=== PATIENT | female | born 1955 | race Caucasian/White ===

== ENCOUNTER 2018-07-24 18:02 | Inpatient (IN) ==
[2018-07-24 21:23] LABS: Basophils % 0.4 %; Eosinophils # 0.3 K/mcL (0.0-0.6); Eosinophils % 4.7 %; Hematocrit 44.6 % (35.3-44.9); Hemoglobin 13.8 g/dL (11.5-15.4); Immature Granulocytes % 0.3 % (0-4); Lymphocytes # 1.3 K/mcL (0.6-4.6); Lymphocytes % 17.9 %; Mean Corpuscular HGB Conc 30.9 g/dL (31.6-35.5); Mean Corpuscular Hemoglobin 27.9 pg (28.0-33.3); Mean Corpuscular Volume 90.1 fL (83.0-100.0); Mean Platelet Volume 10.4 fL (9.4-12.4); Monocytes # 0.5 K/mcL (0.0-1.3); Monocytes % 6.5 %; Neutrophils # 5.1 K/mcL (1.6-8.9); Platelet Count 180 K/mcL (140-400); Red Blood Count 4.95 M/mcL (3.82-4.97); Segmented Neutrophils % 70.2 %; White Blood Count 7.3 K/mcL (4.3-11.1)
[2018-07-24 21:37] LABS: BUN/Creatinine Ratio 19 (6-26); Blood Urea Nitrogen 12 mg/dL (8-23); Calcium 8.9 mg/dL (8.6-10.3); Carbon Dioxide 33 mEq/L (23-29); Chloride 103 mEq/L (98-107); Glucose 95 mg/dL (70-105); Osmolality,Calculated 292 (280-300); Potassium 4.5 mEq/L (3.5-5.1); Sodium 141 mEq/L (136-145); eGFR For African Americans > 60 (> 60); eGFR For Non-African Americans > 60 (> 60)
[2018-07-24 21:38] LABS: Troponin I < 0.03 ng/mL (< 0.04)
--- NOTE | 2018-07-25 01:17 | Emergency Department Note ---
Disposition Clinical Impression: Acute exacerbation of chronic obstructive airways disease Disposition: Admitted As Inpatient Condition: Fair Time of Disposition: 03:45 General Adult HPI - General Chief complaint: ED Shortness of Breath/Dyspnea Stated complaint: MINNIE Time Seen by Provider: 07/24/18 21:10 Source: patient Limitations: no limitations Nursing Notes Reviewed: Yes Vital Signs Reviewed: Yes - History of Present Illness HPI Narrative: 63-year-old female with history of COPD who presents the emergency department with complaints of shortness of breath. This is been ongoing for approximately one week and progressively worsening. She states she has been using her albuterol inhaler at home without significant improvement. Today she was seen by her primary care physician who told her she had decreased lung sounds and should come to the emergency department for reevaluation. The patient has inte rmittent cough with production of white sputum but denies any fever, chills, chest pain, nausea, vomiting, abdominal pain, diarrhea. She has no pain on deep inhalation. She has no increase in swelling in her legs. Pain Scale: 0 - Related Data Home Medications Medication Instructions Recorded Confirmed Aspirin [Adult Aspirin] 81 mg PO DAILY 07/25/18 07/25/18 Levothyroxine [Synthroid] 25 mcg PO DAILY 07/25/18 07/25/18 Omeprazole [PriLOSEC] 20 mg PO DAILY 07/25/18 07/25/18 Allergies Allergy/AdvReac Type Severity Reaction Status Date / Time codeine Allergy Hives Verified 12/08/15 15:20 Iodinated Contrast- Oral and Allergy Difficulty Verified 12/08/15 15:20 IV Dye Breathing [Iodinated Contrast Media - IV Dye] morphine Allergy Rash Verified 07/24/18 18:59 Penicillins Allergy See Verified 07/25/18 04:41 Comments Review of Systems: ROS per history of present illness, all other systems reviewed and negative or normal. All systems ED: reviewed and negative except as stated. Review of Systems: As Per HPI Past Medical History - Past Medical History Attestation: Yes The following information was validated with the patient. Medical history: Reports: DVT, thyroid disease - Social History Smoking Status: Former smoker Smokeless Tobacco Status: No Alcohol use: Reports: none Drug use: Reports: none Physical Exam General: Conversant. No apparent distress. Follow commands. Appears stated age. Neck: No JVD. Trachea midline. Neck supple. Eyes: PERRL. No scleral icterus. HENT: Normocephalic and atraumatic. Moist mucus membranes. Cardiovascular: Regular rate and rhythm. Normal S1 and S2. No murmurs appreci ated. Normal capillary refill. Extremities well perfused with 2+ distal pulses bilaterally. No edema. Pulmonary: Coarse breath sounds with and expiratory wheezing in all lung quinonez, worse in the bases. The patient is on 2 L nasal cannula and does not on baseline oxygen at home. Abdomen: Soft, nondistended, and tontender. No bruits or masses. No guarding. Neuro: Alert and oriented x3. No slurred speech. No focal deficits noted. Skin: No rashes noted on visualized skin. Musculoskeletal: No bony abnormalities visualized. Moves all extremities. Psych: Normal mood. Pleasant. Makes appropriate eye contact. - General Limitations: no limitations General appearance: alert, in no apparent distress Course - Reevaluation(s) Reevaluation #1: On reevaluation following duonebs the patient has significant improvement in air movement and is not wheezing but she does continue to have decreased air movement throughout and requiring 2L nasal cannula to maintain adequate oxygenation. Time: 03:19 Vital Signs Temperature 97.8 F 07/24/18 18:57 Pulse Rate 88 07/24/18 18:57 Respiratory Rate 22 07/24/18 18:57 Blood Pressure 151/103 07/24/18 18:57 O2 Sat by Pulse Oximetry 95 07/24/18 18:57 Temperature 98.1 F 07/24/18 21:51 Pulse Rate 89 07/25/18 04:43 Respiratory Rate 18 07/25/18 04:43 Blood Pressure 144/83 07/25/18 04:43 O2 Sat by Pulse Oximetry 94 07/25/18 04:43 Oxygen Delivery Oxygen Delivery Nasal Cannula Medical Decision Making - [facility] Narrative Medical decision making narrative: 63-year-old female who presents the emergency department with complaints of shortness of breath over the last week. On arrival patient is hypoxic down to the 80s and was therefore placed on nasal cannula. The patient does have diffuse wheezing and increased work of breathing on my examination. The patient was given DuoNeb 3 with improvement in her aeration, no more wheezing but she does have continued decreased breath sounds. She was also given 125 mg dexamethasone. Laboratory evaluation including CBC, BMP, EKG and chest x-ray shows no significant abdomen bowel days. The patient does not have focal consolidation on chest x-ray. EKG appears approximately the patient's baseline. There is no significant leukocytosis or electrolyte abnormality. The patient does continue to have increased work of breathing therefore given albuterol treatments. Given her oxygen requirement there is no above her baseline of will admit the patient for COPD exacerbation. Discussed case with on-call hospitalist Dr. Mir who agrees with plan for admission and accepts the patient to the inpatient service. Patient agrees with and understands course of treatment plan including plan for admission. All questions answered. - Medical Records Medical records reviewed: Yes I reviewed the patient's medical records. - Lab Data Lab results reviewed: Yes I reviewed the patient's lab results. Result diagrams: 07/24/18 20:45 07/24/18 20:44 Lab Results 07/24/18 07/24/18 07/24/18 Range/Units 20:44 20:45 20:45 WBC 7.3 (4.3-11.1) K/mcL RBC 4.95 (3.82-4.97) M/mcL Hgb 13.8 (11.5-15.4) g/dL Hct 44.6 (35.3-44.9) % MCV 90.1 (83.0-100.0) fL MCH 27.9 L (28.0-33.3) pg MCHC 30.9 L (31.6-35.5) g/dL RDW 15.0 H (11.5-14.5) % Plt Count 180 (140-400) K/mcL MPV 10.4 (9.4-12.4) fL Immature Gran % 0.3 (0-4) % Seg Neutrophils % 70.2 % Lymphocytes % 17.9 % Monocytes % 6.5 % Eosinophils % 4.7 % Basophils % 0.4 % Neutrophils # 5.1 (1.6-8.9) K/mcL Lymphocytes # 1.3 (0.6-4.6) K/mcL Monocytes # 0.5 (0.0-1.3) K/mcL Eosinophils # 0.3 (0.0-0.6) K/mcL Basophils # 0.0 (0.0-0.2) K/mcL Sodium 141 (136-145) mEq/L Potassium 4.5 (3.5-5.1) mEq/L Chloride 103 (98-107) mEq/L Carbon Dioxide 33 H (23-29) mEq/L BUN 12 (8-23) mg/dL Creatinine 0.63 (0.60-1.20) mg/dL Est GFR ( Amer) > 60 (> 60) Est GFR (Non-Af Amer) > 60 (> 60) BUN/Creatinine Ratio 19 (6-26) Glucose 95 (70-105) mg/dL Calculated Osmolality 292 (280-300) Lactic Acid (0.5-2.2) mmol/L Calcium 8.9 (8.6-10.3) mg/dL Troponin I < 0.03 (< 0.04) ng/mL B-Natriuretic Peptide 15 (Less than 100) pg/mL 07/25/18 Range/Units 02:30 WBC (4.3-11.1) K/mcL RBC (3.82-4.97) M/mcL Hgb (11.5-15.4) g/dL Hct (35.3-44.9) % MCV (83.0-100.0) fL MCH (28.0-33.3) pg MCHC (31.6-35.5) g/dL RDW (11.5-14.5) % Plt Count (140-400) K/mcL MPV (9.4-12.4) fL Immature Gran % (0-4) % Seg Neutrophils % % Lymphocytes % % Monocytes % % Eosinophils % % Basophils % % Neutrophils # (1.6-8.9) K/mcL Lymphocytes # (0.6-4.6) K/mcL Monocytes # (0.0-1.3) K/mcL Eosinophils # (0.0-0.6) K/mcL Basophils # (0.0-0.2) K/mcL Sodium (136-145) mEq/L Potassium (3.5-5.1) mEq/L Chloride (98-107) mEq/L Carbon Dioxide (23-29) mEq/L BUN (8-23) mg/dL Creatinine (0.60-1.20) mg/dL Est GFR ( Amer) (> 60) Est GFR (Non-Af Amer) (> 60) BUN/Creatinine Ratio (6-26) Glucose (70-105) mg/dL Calculated Osmolality (280-300) Lactic Acid 0.7 (0.5-2.2) mmol/L Calcium (8.6-10.3) mg/dL Troponin I (< 0.04) ng/mL B-Natriuretic Peptide (Less than 100) pg/mL - Radiology Data Radiology results reviewed: Yes I reviewed the patient's radiology results. Chest X-Ray 07/24/18 19:00 IMPRESSION: Apical predominant emphysema with chronically increased markings the lung bases. There is superimposed mild acute left basilar infiltrate and/or atelectasis. D/ / Agustin Arvizu MD / Agustin Arvizu MD Interpreting Provider: Agustin Arvizu MD - EKG Data EKG #1 EKG attestation: Yes I reviewed and interpreted this EKG. EKG results narrative: Normal sinus rhythm rate 98. Normal axis. Low voltage throughout. There is no evidence of acute ischemic changes. When compared with prior from 11/12/12. No significant changes.
[2018-07-25] MEDS ORDERED: Ipratropium/Albuterol Neb 3 ML IH ONE ×2 (01:23→21:04)
[2018-07-25] MEDS ORDERED: methylPREDNISolone 125 MG/2 ML VIAL IVP ONE (01:23)
[2018-07-25] MEDS ORDERED: Albuterol 2.5 MG/3 ML NEBULIZER IH ONE (03:14)
[2018-07-25] MEDS ORDERED: Azithromycin 500 MG in D5% in Water 250 ML IVPB STA (03:46)
--- NOTE | 2018-07-25 04:44 | Emergency Department Note ---
Disposition Clinical Impression: Acute exacerbation of chronic obstructive airways disease Disposition: Admitted As Inpatient Condition: Fair Time of Disposition: 03:45 General Adult HPI - General Chief complaint: ED Shortness of Breath/Dyspnea Stated complaint: MINNIE Time Seen by Provider: 07/24/18 21:10 Source: patient Limitations: no limitations Nursing Notes Reviewed: Yes Vital Signs Reviewed: Yes - History of Present Illness Pain Scale: 0 - Related Data Home Medications Medication Instructions Recorded Confirmed Aspirin [Adult Aspirin] 81 mg PO DAILY 07/25/18 07/25/18 Levothyroxine [Synthroid] 25 mcg PO DAILY 07/25/18 07/25/18 Omeprazole [PriLOSEC] 20 mg PO DAILY 07/25/18 07/25/18 Allergies Allergy/AdvReac Type Severity Reaction Status Date / Time codeine Allergy Hives Verified 12/08/15 15:20 Iodinated Contrast- Oral and Allergy Difficulty Verified 12/08/15 15:20 IV Dye Breathing [Iodinated Contrast Media - IV Dye] morphine Allergy Rash Verified 07/24/18 18:59 Penicillins Allergy See Verified 07/25/18 04:41 Comments Past Medical History - Past Medical History Medical history: Reports: DVT, thyroid disease - Social History Smoking Status: Former smoker Smokeless Tobacco Status: No Alcohol use: Reports: none Drug use: Reports: none Physical Exam - General Limitations: no limitations General appearance: alert, in no apparent distress Course Vital Signs Temperature 97.8 F 07/24/18 18:57 Pulse Rate 88 07/24/18 18:57 Respiratory Rate 22 07/24/18 18:57 Blood Pressure 151/103 07/24/18 18:57 O2 Sat by Pulse Oximetry 95 07/24/18 18:57 Temperature 98.1 F 07/24/18 21:51 Pulse Rate 89 07/25/18 04:43 Respiratory Rate 18 07/25/18 04:43 Blood Pressure 144/83 07/25/18 04:43 O2 Sat by Pulse Oximetry 94 07/25/18 04:43 Oxygen Delivery Oxygen Delivery Nasal Cannula Medical Decision Making - Medical Records Medical records reviewed: Yes I reviewed the patient's medical records. - Lab Data Lab results reviewed: Yes I reviewed the patient's lab results. Result diagrams: 07/24/18 20:45 07/24/18 20:44 Lab Results 07/24/18 07/24/18 07/24/18 Range/Units 20:44 20:45 20:45 WBC 7.3 (4.3-11.1) K/mcL RBC 4.95 (3.82-4.97) M/mcL Hgb 13.8 (11.5-15.4) g/dL Hct 44.6 (35.3-44.9) % MCV 90.1 (83.0-100.0) fL MCH 27.9 L (28.0-33.3) pg MCHC 30.9 L (31.6-35.5) g/dL RDW 15.0 H (11.5-14.5) % Plt Count 180 (140-400) K/mcL MPV 10.4 (9.4-12.4) fL Immature Gran % 0.3 (0-4) % Seg Neutrophils % 70.2 % Lymphocytes % 17.9 % Monocytes % 6.5 % Eosinophils % 4.7 % Basophils % 0.4 % Neutrophils # 5.1 (1.6-8.9) K/mcL Lymphocytes # 1.3 (0.6-4.6) K/mcL Monocytes # 0.5 (0.0-1.3) K/mcL Eosinophils # 0.3 (0.0-0.6) K/mcL Basophils # 0.0 (0.0-0.2) K/mcL Sodium 141 (136-145) mEq/L Potassium 4.5 (3.5-5.1) mEq/L Chloride 103 (98-107) mEq/L Carbon Dioxide 33 H (23-29) mEq/L BUN 12 (8-23) mg/dL Creatinine 0.63 (0.60-1.20) mg/dL Est GFR ( Amer) > 60 (> 60) Est GFR (Non-Af Amer) > 60 (> 60) BUN/Creatinine Ratio 19 (6-26) Glucose 95 (70-105) mg/dL Calculated Osmolality 292 (280-300) Lactic Acid (0.5-2.2) mmol/L Calcium 8.9 (8.6-10.3) mg/dL Troponin I < 0.03 (< 0.04) ng/mL B-Natriuretic Peptide 15 (Less than 100) pg/mL 07/25/18 Range/Units 02:30 WBC (4.3-11.1) K/mcL RBC (3.82-4.97) M/mcL Hgb (11.5-15.4) g/dL Hct (35.3-44.9) % MCV (83.0-100.0) fL MCH (28.0-33.3) pg MCHC (31.6-35.5) g/dL RDW (11.5-14.5) % Plt Count (140-400) K/mcL MPV (9.4-12.4) fL Immature Gran % (0-4) % Seg Neutrophils % % Lymphocytes % % Monocytes % % Eosinophils % % Basophils % % Neutrophils # (1.6-8.9) K/mcL Lymphocytes # (0.6-4.6) K/mcL Monocytes # (0.0-1.3) K/mcL Eosinophils # (0.0-0.6) K/mcL Basophils # (0.0-0.2) K/mcL Sodium (136-145) mEq/L Potassium (3.5-5.1) mEq/L Chloride (98-107) mEq/L Carbon Dioxide (23-29) mEq/L BUN (8-23) mg/dL Creatinine (0.60-1.20) mg/dL Est GFR ( Amer) (> 60) Est GFR (Non-Af Amer) (> 60) BUN/Creatinine Ratio (6-26) Glucose (70-105) mg/dL Calculated Osmolality (280-300) Lactic Acid 0.7 (0.5-2.2) mmol/L Calcium (8.6-10.3) mg/dL Troponin I (< 0.04) ng/mL B-Natriuretic Peptide (Less than 100) pg/mL - Radiology Data Radiology results reviewed: Yes I reviewed the patient's radiology results. Chest X-Ray 07/24/18 19:00 IMPRESSION: Apical predominant emphysema with chronically increased markings the lung bases. There is superimposed mild acute left basilar infiltrate and/or atelectasis. D/ / Agustin Arvizu MD / Agustin Arvizu MD Interpreting Provider: Agustin Arvizu MD - EKG Data EKG #1 EKG attestation: Yes I reviewed and interpreted this EKG. EKG results narrative: EKG shows a normal sinus rhythm with ventricular rate of 98. No ST segment elev ation or depression. No arrhythmia or ectopy. Critical Care Time Critical Care Time: No Attestation Statement - Attestation Attestation: I, Sigifredo Vaughn MD, personally evaluated this patient and discussed their management with the resident physician. I reviewed the resident's note and agree with the documented findings, medical decision making, and plan of care. I reviewed the residents documentation and agree with the residents assessment and plan of care. I have personally had face to face time with the patient. I personally supervised and was present for the giles/critical portions of the following procedures completed by the resident: eKG interpretation. 63-year-old female presents to the emergency department with a complaint of increased shortness of breath over the past week or so. Much worse over the past few days. There has been wheezing. She has a history of COPD but does not use home oxygen. There has been some cough with white sputum production. No fever. No chest pain. On examination patient is a well-developed well-nourished female in mild respiratory distress. She is alert and oriented 3. There is no cyanosis or diaphoresis. Breath sounds are decreased bilaterally with diffuse tight bilateral expiratory wheezes. Heart regular rate and rhythm. Abdomen is soft and nontender with normal bowel sounds. EKG shows a normal sinus rhythm with ventricular rate of 98. No ST segment el evation or depression. No arrhythmia or ectopy. Chest x-ray shows a mild acute left basilar infiltrate or atelectasis. Labs reviewed. Patient received triple DuoNeb treatment and IV Solu-Medrol. She continues to have tight wheezes after treatment. He received an additional albuterol treatment and was also started on azithromycin IV. The hospitalist, Dr. Mir, was consulted and accepted admission of the patient.
--- NOTE | 2018-07-25 08:27 | Internal Med History&Physical ---
Date of Encounter: 07/26/18 Time of Encounter: 07:00 Internal Medicine - H&P: HPI Chief complaint: SOB History of present illness: 63-year-old female with history of COPD who presents the emergency department with complaints of one week history of progressive worsening of shortness of breath associated with intermittent cough with production of white sputum that is not improving while using albuterol inhaler at home. She has history of chronic sinusitis, feel congested and can no longer breath through her nose. She denies any fever, chills, chest pain, nausea, vomiting, abdominal pain, diarrhea. The patient was admitted for for further evaluation of COPD exacer bation. Past Med Surg Social Fam HX - Past Medical History Medical history: COPD, DVT, GERD, thyroid disease Additional medical history: Barretts syndrome Psychiatric history: no psych history - Past Surgical History Surgical History: hysterectomy - Social History Smoking Status: Former smoker Smokeless Tobacco Status: No Alcohol use: none Drug use: none - Family History Father Adopted: No Living Status: Still Living Hx Family Cardiac Disorders: Yes Internal Medicine - H&P: Meds Aspirin [Adult Aspirin] 81 mg PO DAILY 07/25/18 [History] Levothyroxine [Synthroid] 25 mcg PO DAILY 07/25/18 [History] Omeprazole [PriLOSEC] 20 mg PO DAILY 07/25/18 [History] Allergy/AdvReac Type Severity Reaction Status Date / Time codeine Allergy Hives Verified 12/08/15 15:20 Iodinated Contrast- Oral and Allergy Difficulty Verified 12/08/15 15:20 IV Dye Breathing [Iodinated Contrast Media - IV Dye] morphine Allergy Rash Verified 07/24/18 18:59 Penicillins Allergy See Verified 07/25/18 04:41 Comments All Systems PM: A 10-system review of systems was performed and is negative for pertinent findi ngs except as documented above in the HPI. - Constitutional Vitals: Temp Pulse Resp BP Pulse Ox 97.8 F 88 18 136/82 91 07/25/18 06:48 07/25/18 06:48 07/25/18 06:48 07/25/18 06:48 07/25/18 06:48 General appearance: Present: A&O X 3 - Head Head exam: Present: atraumatic, normocephalic - Neck Neck exam general surgery: Present: supple, trachea midline. Absent: lymphadenopathy - Respiratory Respiratory exam: Present: CTAB, wheezes. Absent: accessory muscle use, rales - Cardiovascular Cardiovascular exam: Present: RRR, +S1, +S2. Absent: diastolic murmur, gallop, rubs, systolic murmur - GI/Abdominal GI/Abdominal exam: Present: normal bowel sounds, soft, no peritoneal signs. Absent: distended, tenderness - Extremities Exam Extremities exam: Present: pedal edema, warm, radial pulses palpable and symmetrical. Absent: calf tenderness, cyanotic - Skin Skin exam: Present: dry, intact Internal Med - H&P Results - Labs CBC & Chem 7: 07/24/18 20:45 07/24/18 20:44 Labs: Short CBC 07/24/18 Range/Units 20:45 WBC 7.3 (4.3-11.1) K/mcL Hgb 13.8 (11.5-15.4) g/dL Hct 44.6 (35.3-44.9) % Plt Count 180 (140-400) K/mcL Neutrophils # 5.1 (1.6-8.9) K/mcL BMP 07/24/18 20:44 Sodium 141 Potassium 4.5 Chloride 103 Carbon Dioxide 33 H BUN 12 Creatinine 0.63 Glucose 95 Calcium 8.9 Cardiac Enzymes 07/24/18 Range/Units 20:44 Troponin I < 0.03 (< 0.04) ng/mL - Impressions ITS Impressions Chest X-Ray 07/24/18 19:00 IMPRESSION: Apical predominant emphysema with chronically increased markings the lung bases. There is superimposed mild acute left basilar infiltrate and/or atelectasis. D/ / Agustin Arvizu MD / Agustin Arvizu MD Interpreting Provider: Agustin Arvizu MD - Assessment and Plan (1) Acute exacerbation of chronic obstructive airways disease Current Visit: Yes Status: Acute Assessment and plan: ASSESSMENT: - SOB due to COPD exacerbation caused by URTI, allergen exposure, medication nonocompliance *Bronchitis *Pneumonia - no infiltrate on CXR PLAN: - Aerosols q 4 hr and PRN SOB - Solu-medrol 40 mg IV q 6 hr - O2 to keep SpO2 higher than 92% (SpO higher than 95% if CAD) - CBCD, BMP in AM - Sputum Gram stain, C+S - Tylenol 650 mg PO q 4-6 hr PRN pain/fever - ABs (2) Hypothyroidism Current Visit: Yes Status: Acute Assessment and plan: We will cont home thyroxin Qualifiers: Qualified Code(s): E03.9 - Hypothyroidism, unspecified (3) Hypertension Current Visit: Yes Status: Acute Assessment and plan: We will cont. home medication (4) DVT prophylaxis Current Visit: Yes Status: Acute Assessment and plan: We will start heparin 5000 BID (5) Sinusitis Current Visit: Yes Status: Acute Assessment and plan: The patient has history of chronic sinusitis, feel congested and can no longer breath through her nose, we will obtain CT sinus with no contrast. Qualifiers: Sinusitis location: unspecified location - Time Spent With Patient Total time spent is greater than 50% in coordination of care (as documented) at patient's floor/unit and/or counseling patient:
[2018-07-25] MEDS ORDERED: Ondansetron 4 MG/2 ML VIAL IVP PRN (10:13)
[2018-07-25] MEDS ORDERED: Naloxone 0.4 MG/ML INJ IVP PRN (10:13)
[2018-07-25] MEDS: Ipratropium/Albuterol Neb 3 ML IH SCH ×3 (11:22→23:20)
[2018-07-25] MEDS: MethylPREDNISolone 40 MG/ML VIAL IVP SCH ×3 (11:45→23:26)
[2018-07-25] MEDS: Acetaminophen 325 MG TABLET PO PRN (17:36)
[2018-07-25] MEDS: Aspirin Enteric Coated 81 MG Tablet PO SCH (21:10)
[2018-07-26] MEDS: Ipratropium/Albuterol Neb 3 ML IH SCH ×6 (03:51→23:42)
[2018-07-26] MEDS: Levothyroxine 25 MCG TABLET PO SCH (05:04)
[2018-07-26] MEDS: MethylPREDNISolone 40 MG/ML VIAL IVP SCH ×4 (05:04→23:49)
[2018-07-26] MEDS: Azithromycin 500 MG in D5% in Water 250 ML IVPB SCH (05:05)
[2018-07-26] MEDS: Aspirin Enteric Coated 81 MG Tablet PO SCH (07:29)
[2018-07-26 08:02] LABS: Basophils % 0.1 %; Hematocrit 46.4 % (35.3-44.9); Hemoglobin 14.2 g/dL (11.5-15.4); Immature Granulocytes % 0.6 % (0-4); Lymphocytes # 0.4 K/mcL (0.6-4.6); Lymphocytes % 3.6 %; Mean Corpuscular HGB Conc 30.6 g/dL (31.6-35.5); Mean Corpuscular Hemoglobin 27.6 pg (28.0-33.3); Mean Corpuscular Volume 90.3 fL (83.0-100.0); Monocytes # 0.3 K/mcL (0.0-1.3); Monocytes % 2.1 %; Platelet Count 193 K/mcL (140-400); Red Blood Count 5.14 M/mcL (3.82-4.97); Red Cell Distribution Width 14.8 % (11.5-14.5); Segmented Neutrophils % 93.6 %
[2018-07-26 08:05] LABS: White Blood Count 11.8 K/mcL (4.3-11.1)
[2018-07-26 08:14] LABS: INR 0.9; Prothrombin Time 9.9 Seconds (9.4-12.1)
[2018-07-26 08:17] LABS: Activated Partial Thrombo Time 29.2 Seconds (26.0-36.0)
[2018-07-26] MEDS ORDERED: Aspirin Enteric Coated 81 MG Tablet PO SCH (09:00)
[2018-07-26 09:28] LABS: Alanine Aminotransferase 17 Units/L (7-52); Albumin 4.1 g/dL (3.5-5.7); Albumin/Globulin Ratio 1.3 (1.1-2.2); Alkaline Phosphatase 74 Units/L (34-104); BUN/Creatinine Ratio 25 (6-26); Bilirubin,Total 0.3 mg/dL (0.3-1.0); Blood Urea Nitrogen 15 mg/dL (8-23); Calcium 9.3 mg/dL (8.6-10.3); Carbon Dioxide 31 mEq/L (23-29); Chloride 102 mEq/L (98-107); Chol/HDL Ratio 2.6 (0-4.9); Cholesterol 149 mg/dL (< 200); Globulin 3.1 g/dL (2.4-3.5); Glucose 152 mg/dL (70-105); HDL Cholesterol 57 mg/dL (40-59); LDL Cholesterol,Calculated 84 mg/dL (0-99); Magnesium 1.9 mg/dL (1.6-2.6); Osmolality,Calculated 294 (280-300); Potassium 4.4 mEq/L (3.5-5.1); Sodium 140 mEq/L (136-145); Total Protein 7.2 g/dL (6.4-8.9); Triglycerides 42 mg/dL (< 150); eGFR For African Americans > 60 (> 60); eGFR For Non-African Americans > 60 (> 60)
[2018-07-26 10:25] LABS: Phosphorous 2.2 mg/dL (2.7-4.5)
[2018-07-26] MEDS ORDERED: Albuterol 2.5 MG/3 ML NEBULIZER IH PRN (14:02)
--- NOTE | 2018-07-26 18:07 | Internal Med Progress Note ---
Hospitalist Progress Note - Encounter Date of Encounter: 07/26/18 Time of Encounter: 13:20 - Subjective Interval History: Ms Block is currently in observation for acute exac COPD. She remains moderate to high risk due to potential for worsening respiratory status. Ms Block is feeling a little better but still quite dyspneic. No fever or chills. No CP. No GI issues. Still with cough and congestion. - Exam Vitals: Temp Pulse Resp BP Pulse Ox 97.7 F 107 18 156/73 90 07/26/18 17:33 07/26/18 17:33 07/26/18 17:33 07/26/18 17:33 07/26/18 17:33 Exam: General: Alert and oriented. Mild respiratory distress at this time. Skin: Normal color, no rash, H: Normocephalic. EENT: EOMI, Mucus membranes moist. Cardiovascular: Normal S1 & S2, Pulse regular. Lungs: Decreased breath sounds. No wheeze today. Abdomen: Soft, non-tender, Normal bowel sounds. Extremities: No deformity, no edema Neurological: Normal cognition and motor skills. Pulses: radial pulses normal +2. Rest of the physical exam is non contributory - Assessment and Plan (1) Acute respiratory failure with hypoxia Current Visit: Yes Status: Acute Assessment and Plan: Pt has hx COPD but is not on home oxygen. Weaning oxygen as able. May need to check for home use at discharge. (2) Acute exacerbation of chronic obstructive airways disease Current Visit: Yes Status: Acute Assessment and Plan: ASSESSMENT: - SOB due to COPD exacerbation caused by URTI, allergen exposure, medication nonocompliance *Bronchitis *Pneumonia - no infiltrate on CXR PLAN: - Continue IV steroids, aerosols and abx. Increase activity (3) Hypothyroidism Current Visit: Yes Status: Chronic Assessment and Plan: On thyroid replacement. (4) Hypertension Current Visit: Yes Status: Chronic Assessment and Plan: Essentially controlled. (5) Sinusitis Current Visit: Yes Status: Ruled-out Assessment and Plan: CT neg for acute sinusitis - Time Spent with Patient Total time spent is greater than 50% in coordination of care (as documented) at patient's floor/unit and/or counseling patient: Internal Medicine: Result - Labs CBC & Chem 7: 07/26/18 05:42 07/26/18 08:41 Labs: Short CBC 07/26/18 Range/Units 05:42 WBC 11.8 H D (4.3-11.1) K/mcL Hgb 14.2 (11.5-15.4) g/dL Hct 46.4 H (35.3-44.9) % Plt Count 193 (140-400) K/mcL Neutrophils # 11.0 H (1.6-8.9) K/mcL BMP 07/26/18 08:41 Sodium 140 Potassium 4.4 Chloride 102 Carbon Dioxide 31 H BUN 15 Creatinine 0.61 Glucose 152 H Calcium 9.3 Cardiac Enzymes 07/25/18 Range/Units 22:21 Troponin I < 0.03 (< 0.04) ng/mL Liver Function 07/26/18 07/26/18 Range/Units 08:41 09:56 Total Bilirubin 0.3 (0.3-1.0) mg/dL AST TNP 15 ALT 17 (7-52) Units/L Alkaline Phosphatase 74 (34-104) Units/L Albumin 4.1 (3.5-5.7) g/dL - ABG Interpretation ABG results: PT/INR, D-dimer PT 9.9 Seconds (9.4-12.1) 07/26/18 05:42 - Impressions Impressions Sinuses CT 07/25/18 20:38 IMPRESSION: No evidence of sinusitis. D/ / Jarett Matthew MD / Jarett Matthew MD Interpreting Provider: Jarett Matthew MD Consult Discharge Plan - Plan Referrals: José Luis Cervantes MD [Primary Care Provider] - (3) Hypothyroidism Qualifiers: Hypothyroidism type: acquired Qualified Code(s): E03.9 - Hypothyroidism, unspecified (4) Hypertension Qualifiers: Hypertension type: essential hypertension Qualified Code(s): I10 - Essential (primary) hypertension (5) Sinusitis Qualifiers: Sinusitis location: unspecified location Qualified Code(s): J32.9 - Chronic sinusitis, unspecified
[2018-07-26] MEDS: Acetaminophen 325 MG TABLET PO PRN (20:03)
[2018-07-27] MEDS: Ipratropium/Albuterol Neb 3 ML IH SCH ×6 (04:25→23:51)
[2018-07-27] MEDS: Azithromycin 500 MG in D5% in Water 250 ML IVPB SCH (05:51)
[2018-07-27] MEDS: Levothyroxine 25 MCG TABLET PO SCH (05:51)
[2018-07-27] MEDS: MethylPREDNISolone 40 MG/ML VIAL IVP SCH ×3 (05:51→20:06)
[2018-07-27] MEDS: Aspirin Enteric Coated 81 MG Tablet PO SCH (07:49)
[2018-07-27 09:36] LABS: Alanine Aminotransferase 19 Units/L (7-52); Albumin 4.1 g/dL (3.5-5.7); Albumin/Globulin Ratio 1.5 (1.1-2.2); Alkaline Phosphatase 69 Units/L (34-104); Aspartate Amino Transferase 17 Units/L (13-39); BUN/Creatinine Ratio 27 (6-26); Bilirubin,Total 0.3 mg/dL (0.3-1.0); Blood Urea Nitrogen 16 mg/dL (8-23); Calcium 9.2 mg/dL (8.6-10.3); Carbon Dioxide 32 mEq/L (23-29); Chloride 102 mEq/L (98-107); Globulin 2.8 g/dL (2.4-3.5); Glucose 130 mg/dL (70-105); Osmolality,Calculated 289 (280-300); Sodium 138 mEq/L (136-145); Total Protein 6.9 g/dL (6.4-8.9); eGFR For African Americans > 60 (> 60); eGFR For Non-African Americans > 60 (> 60)
--- NOTE | 2018-07-27 15:26 | Internal Med Progress Note ---
Hospitalist Progress Note - Encounter Date of Encounter: 07/27/18 Time of Encounter: 11:40 - Subjective Interval History: Ms Block is currently in observation for acute hypoxic resp failure and COPD. She remains moderate to high risk due to potential for worsening clinical status. Ms Block is resting. She appears to be snoring a lot. No fever or chills. No CP reported. Still requiring oxygen. - Exam Vitals: Temp Pulse Resp BP Pulse Ox 98.0 F 90 16 135/79 94 07/27/18 10:23 07/27/18 10:23 07/27/18 11:11 07/27/18 10:23 07/27/18 11:11 Exam: General: Alert and oriented. Snoring when asleep. Skin: Normal color, no rash, H: Normocephalic. EENT: EOMI, Mucus membranes moist. Cardiovascular: Normal S1 & S2, Regular and not tachycardic Lungs: Continued end exp wheeze. Abdomen: Soft, non-tender, Extremities: No deformity, no edema Neurological: Normal cognition and motor skills. Pulses: radial pulses normal +2. Rest of the physical exam is non contributory - Assessment and Plan (1) Acute respiratory failure with hypoxia Current Visit: Yes Status: Acute Assessment and Plan: Pt has hx COPD but is not on home oxygen. Most likely will need oxygen at discharge. Appears to have some sleep apnea - will get bipap study tonight. (2) Acute exacerbation of chronic obstructive airways disease Current Visit: Yes Status: Acute Assessment and Plan: Continues to have significant wheezing. Repeat CXR today. Will decrease steroids to q8h and see how she does. (3) Hypothyroidism Current Visit: Yes Status: Chronic Assessment and Plan: On thyroid replacement. (4) Hypertension Current Visit: Yes Status: Chronic Assessment and Plan: Essentially controlled. (5) Sinusitis Current Visit: Yes Status: Ruled-out Assessment and Plan: CT neg for acute sinusitis - Time Spent with Patient Total time spent is greater than 50% in coordination of care (as documented) at patient's floor/unit and/or counseling patient: Internal Medicine: Result - Labs CBC & Chem 7: 07/26/18 05:42 07/27/18 08:38 Labs: BMP 07/27/18 08:38 Sodium 138 Potassium 4.0 Chloride 102 Carbon Dioxide 32 H BUN 16 Creatinine 0.59 L Glucose 130 H Calcium 9.2 Liver Function 07/27/18 Range/Units 08:38 Total Bilirubin 0.3 (0.3-1.0) mg/dL AST 17 (13-39) Units/L ALT 19 (7-52) Units/L Alkaline Phosphatase 69 (34-104) Units/L Albumin 4.1 (3.5-5.7) g/dL - ABG Interpretation ABG results: PT/INR, D-dimer PT 9.9 Seconds (9.4-12.1) 07/26/18 05:42 - Impressions Impressions Chest X-Ray 07/27/18 12:27 IMPRESSION: 1. No acute cardiopulmonary disease. 2. COPD. D/ / 07/27/2018 13:24:55 Torri Castro MD / [facility] Interpreting Provider: Torri Castro MD Consult Discharge Plan - Plan Referrals: José Luis Cervantes MD [Primary Care Provider] - (3) Hypothyroidism Qualifiers: Hypothyroidism type: acquired Qualified Code(s): E03.9 - Hypothyroidism, unspecified (4) Hypertension Qualifiers: Hypertension type: essential hypertension Qualified Code(s): I10 - Essential (primary) hypertension (5) Sinusitis Qualifiers: Sinusitis location: unspecified location Qualified Code(s): J32.9 - Chronic sinusitis, unspecified
[2018-07-27] MEDS: Levofloxacin 750 MG/150 ML 750 MG/150 ML BAG IVPB SCH (16:34)
[2018-07-28] MEDS: Ipratropium/Albuterol Neb 3 ML IH SCH ×6 (03:35→23:37)
[2018-07-28] MEDS: MethylPREDNISolone 40 MG/ML VIAL IVP SCH ×3 (04:22→20:57)
[2018-07-28 05:15] LABS: ABG Base Excess 6 mEq/L (-2 to 3); ABG HCO3 33 mEq/L (21-27); ABG Oxygen Saturation 89 % (95-98); ABG PCO2 56 mmHg (35-45); ABG PH 7.37 pH Units (7.32-7.45); ABG PO2 59 mmHg (85-104); ABG TCO2 34 mEq/L (20-26)
[2018-07-28] MEDS: Levothyroxine 25 MCG TABLET PO SCH (06:11)
[2018-07-28 09:42] LABS: Hematocrit 46.1 % (35.3-44.9); Hemoglobin 14.5 g/dL (11.5-15.4); Mean Corpuscular HGB Conc 31.5 g/dL (31.6-35.5); Mean Corpuscular Hemoglobin 28.4 pg (28.0-33.3); Mean Corpuscular Volume 90.2 fL (83.0-100.0); Mean Platelet Volume 10.1 fL (9.4-12.4); Platelet Count 200 K/mcL (140-400); Red Blood Count 5.11 M/mcL (3.82-4.97)
[2018-07-28] MEDS: Aspirin Enteric Coated 81 MG Tablet PO SCH (09:55)
[2018-07-28] MEDS: Levofloxacin 750 MG/150 ML 750 MG/150 ML BAG IVPB SCH (09:55)
[2018-07-28 10:02] LABS: BUN/Creatinine Ratio 25 (6-26); Blood Urea Nitrogen 19 mg/dL (8-23); Calcium 9.2 mg/dL (8.6-10.3); Carbon Dioxide 32 mEq/L (23-29); Chloride 101 mEq/L (98-107); Glucose 158 mg/dL (70-105); Osmolality,Calculated 298 (280-300); Sodium 141 mEq/L (136-145); eGFR For African Americans > 60 (> 60); eGFR For Non-African Americans > 60 (> 60)
--- NOTE | 2018-07-28 19:49 | Internal Med Progress Note ---
Hospitalist Progress Note - Encounter Date of Encounter: 07/28/18 Time of Encounter: 14:50 - Subjective Interval History: Ms Block is currently admitted for acute hypoxic resp failure and COPD. She remains moderate to high risk due to potential for worsening resp status. Ms Block did not sleep well last night. No fever or chills. Qualified for b ipap. No CP. Unable to mobilize sputum. - Exam Vitals: Temp Pulse Resp BP Pulse Ox 98.1 F 94 18 160/81 95 07/28/18 19:07 07/28/18 19:07 07/28/18 19:40 07/28/18 19:07 07/28/18 19:40 Exam: General: Alert and oriented. Comfortable. Skin: Normal color, no rash, H: Normocephalic. EENT: EOMI, Mucus membranes moist. Cardiovascular: Normal S1 & S2, Regular Lungs: Continued end exp wheeze. Some rhonchi anteriorly Abdomen: Soft, non-tender, Extremities: No deformity, no edema Neurological: Normal cognition and motor skills. Pulses: radial pulses normal +2. Rest of the physical exam is non contributory - Assessment and Plan (1) Acute and chronic respiratory failure with hypercapnia Current Visit: Yes Status: Acute Assessment and Plan: Bipap to be arranged. (2) Acute respiratory failure with hypoxia Current Visit: Yes Status: Acute Assessment and Plan: Pt has hx COPD but is not on home oxygen. Has qualified for bipap. Will be arranged. (3) Acute exacerbation of chronic obstructive airways disease Current Visit: Yes Status: Acute Assessment and Plan: Continues to have significant wheezing. Add Mucinex today. (4) Hypothyroidism Current Visit: Yes Status: Chronic Assessment and Plan: On thyroid replacement. (5) Hypertension Current Visit: Yes Status: Chronic Assessment and Plan: BP higher today. Will start bipap tonight - reassess tomorrow. - Time Spent with Patient Total time spent is greater than 50% in coordination of care (as documented) at patient's floor/unit and/or counseling patient: Internal Medicine: Result - Labs CBC & Chem 7: 07/28/18 09:20 07/28/18 09:20 Labs: Short CBC 07/28/18 Range/Units 09:20 WBC 10.0 (4.3-11.1) K/mcL Hgb 14.5 (11.5-15.4) g/dL Hct 46.1 H (35.3-44.9) % Plt Count 200 (140-400) K/mcL BMP 07/28/18 09:20 Sodium 141 Potassium 4.0 Chloride 101 Carbon Dioxide 32 H BUN 19 Creatinine 0.75 Glucose 158 H Calcium 9.2 - ABG Interpretation ABG results: ABG ABG pH 7.37 pH Units (7.32-7.45) 07/28/18 05:11 ABG pCO2 56 mmHg (35-45) H 07/28/18 05:11 ABG pO2 59 mmHg (85-104) L 07/28/18 05:11 ABG O2 Saturation 89 % (95-98) L 07/28/18 05:11 PT/INR, D-dimer PT 9.9 Seconds (9.4-12.1) 07/26/18 05:42 Consult Discharge Plan - Plan Referrals: José Luis Cervantes MD [Primary Care Provider] - (4) Hypothyroidism Qualifiers: Hypothyroidism type: acquired Qualified Code(s): E03.9 - Hypothyroidism, unspecified (5) Hypertension Qualifiers: Hypertension type: essential hypertension Qualified Code(s): I10 - Essential (primary) hypertension
[2018-07-29] MEDS: MethylPREDNISolone 40 MG/ML VIAL IVP SCH ×3 (03:00→22:47)
[2018-07-29] MEDS: Ipratropium/Albuterol Neb 3 ML IH SCH ×6 (03:59→23:23)
[2018-07-29] MEDS: *HR* Heparin 5,000 UNIT/ML VIAL SQ SCH ×2 (06:00→17:12)
[2018-07-29] MEDS: Levothyroxine 25 MCG TABLET PO SCH (06:01)
[2018-07-29] MEDS: Aspirin Enteric Coated 81 MG Tablet PO SCH (07:35)
[2018-07-29] MEDS: Levofloxacin 750 MG/150 ML 750 MG/150 ML BAG IVPB SCH (07:35)
--- NOTE | 2018-07-29 18:12 | Internal Med Progress Note ---
Hospitalist Progress Note - Encounter Date of Encounter: 07/29/18 Time of Encounter: 13:45 - Subjective Interval History: Ms lBock is currently admitted for hypoxic and hypercarbic resp failure and COPD. She remains moderate to high risk due to potential for worsening clinical and respiratory status. Ms Block is feeling better today. She is able to mobilize sputum. No fever or chills. No CP. Able to move around more. - Exam Vitals: Temp Pulse Resp BP Pulse Ox 97.9 F 82 20 154/89 92 07/29/18 15:15 07/29/18 15:15 07/29/18 15:42 07/29/18 15:15 07/29/18 16:43 Exam: General: Alert and oriented. Comfortable. Skin: Normal color, no rash, H: Normocephalic. EENT: EOMI, Mucus membranes moist. Cardiovascular: Normal S1 & S2, Regular Lungs: Less rhonchi and wheeze noted today. Abdomen: Soft, non-tender, Extremities: No deformity, no edema Neurological: Normal cognition and motor skills. Pulses: radial pulses normal +2. Rest of the physical exam is non contributory - Assessment and Plan (1) Acute and chronic respiratory failure with hypercapnia Current Visit: Yes Status: Acute Assessment and Plan: Bipap to be arranged. Will start tonight in order to get setting. (2) Acute respiratory failure with hypoxia Current Visit: Yes Status: Acute Assessment and Plan: Pt has hx COPD but is not on home oxygen. Has qualified for bipap. Will need qualification for oxygen as well. (3) Acute exacerbation of chronic obstructive airways disease Current Visit: Yes Status: Acute Assessment and Plan: Improving with addition of Mucinex. Decrease steroids today. Plan PO tomorrow. (4) Hypothyroidism Current Visit: Yes Status: Chronic Assessment and Plan: On thyroid replacement. (5) Hypertension Current Visit: Yes Status: Chronic Assessment and Plan: Fair control. Continue current meds. - Time Spent with Patient Total time spent is greater than 50% in coordination of care (as documented) at patient's floor/unit and/or counseling patient: Internal Medicine: Result - Labs CBC & Chem 7: 07/28/18 09:20 07/28/18 09:20 - ABG Interpretation ABG results: ABG ABG pH 7.37 pH Units (7.32-7.45) 07/28/18 05:11 ABG pCO2 56 mmHg (35-45) H 07/28/18 05:11 ABG pO2 59 mmHg (85-104) L 07/28/18 05:11 ABG O2 Saturation 89 % (95-98) L 07/28/18 05:11 PT/INR, D-dimer PT 9.9 Seconds (9.4-12.1) 07/26/18 05:42 Consult Discharge Plan - Plan Referrals: José Luis Cervantes MD [Primary Care Provider] - (4) Hypothyroidism Qualifiers: Hypothyroidism type: acquired Qualified Code(s): E03.9 - Hypothyroidism, unspecified (5) Hypertension Qualifiers: Hypertension type: essential hypertension Qualified Code(s): I10 - Essential (primary) hypertension
--- NOTE | 2018-07-29 18:25 | Discharge Summary ---
- NOTES TO OUTPATIENT PROVIDER Notes to Outpatient Provider: Pt admitted with acute exac COPD. Slowly improved. Qualified for oxygen and bipap. Orders not resulted at time of discharge: Pending orders 07/24/18 21:10 ECG 12 lead ECG [ECG] Stat Date of Encounter: 07/29/18 Time of Encounter: 13:45 - Discharge Diagnosis (1) Acute and chronic respiratory failure with hypercapnia Priority: Primary Status: Acute (2) Acute respiratory failure with hypoxia Priority: Primary Status: Acute (3) Acute exacerbation of chronic obstructive airways disease Priority: Secondary Status: Acute (4) Hypothyroidism Priority: Secondary Status: Chronic Qualifiers: Hypothyroidism type: acquired Qualified Code(s): E03.9 - Hypothyroidism, unspecified (5) Hypertension Priority: Secondary Status: Chronic Qualifiers: Hypertension type: essential hypertension Qualified Code(s): I10 - Essential (primary) hypertension Hospital course: Ms. Block is a 63 year old female presented to ED with acute dyspnea. She was subsequently admitted. Ms Block was admitted to [facility]. She was started on oxygen, aerosols and steroids. She initially did not have good relief and abx were added. She was noted to have snoring while sleeping and underwent bipap study and qualified. She also qualified for oxygen. She has now steadily improved with abx, steroids, oxygen and mucolytic. She is afebrile and ready for discharge home. - Time Spent with Patient Total time spent providing and/or coordinating discharge services: 35 min - Discharge Medications Prescriptions: New PredniSONE [Deltasone] 40 mg PO DAILY #10 tablet Ipratropium/Albuterol Neb [Duoneb] 3 ml IH [id number] #100 inhsol levoFLOXacin [Levaquin] 750 mg PO DAILY #5 tablet GuaiFENesin ER [Mucinex] 1,200 mg PO BID #60 tbbp.12hr Continued Omeprazole [PriLOSEC] 20 mg PO DAILY Aspirin [Adult Aspirin] 81 mg PO DAILY Levothyroxine [Synthroid] 25 mcg PO DAILY Home Medications: Aspirin [Adult Aspirin] 81 mg PO DAILY 07/25/18 [History] Levothyroxine [Synthroid] 25 mcg PO DAILY 07/25/18 [History] Omeprazole [PriLOSEC] 20 mg PO DAILY 07/25/18 [History] GuaiFENesin ER [Mucinex] 1,200 mg PO BID #60 tbbp.12hr 07/29/18 [Rx] Ipratropium/Albuterol Neb [Duoneb] 3 ml IH [id number] #100 inhsol 07/29/18 [Rx] PredniSONE [Deltasone] 40 mg PO DAILY #10 tablet 07/29/18 [Rx] levoFLOXacin [Levaquin] 750 mg PO DAILY #5 tablet 07/29/18 [Rx] Allergies/Adverse Reactions: Allergy/AdvReac Type Severity Reaction Status Date / Time codeine Allergy Hives Verified 07/26/18 12:46 Iodinated Contrast- Oral and Allergy Difficulty Verified 07/26/18 12:46 IV Dye Breathing [Iodinated Contrast Media - IV Dye] morphine Allergy Rash Verified 07/26/18 12:46 Penicillins Allergy See Verified 07/26/18 12:46 Comments Date of admission: 07/28/18 19:50 Primary care physician: José Luis Cervantes MD Consults: 07/25/18 10:17 Consult to Nurse Navigator [CONS] Routine Comment: 07/25/18 21:04 Consult to Respiratory Therapy [CONS] Routine Reason for Consult: Please add flutter valve to pts. breathing txs Call Completed: Yes 07/28/18 13:46 Consult to Lapel Padder [CONS] Routine Reason for SW Consult: Needs bipap 07/28/18 13:55 Consult to Respiratory Therapy [CONS] Routine Reason for Consult: bipap set up Call Completed: No Discharging clinician: Aaron Sterling Anticipated date of discharge: 07/29/18 - Constitutional Vitals: Temp Pulse Resp BP Pulse Ox 97.9 F 82 20 154/89 92 07/29/18 15:15 07/29/18 15:15 07/29/18 15:42 07/29/18 15:15 07/29/18 16:43 General appearance: Present: A&O X 3 Exam: See below - Head Head exam: Present: normocephalic - Eye Eye exam: Present: EOMI, conjuntiva pink - ENT ENT exam: Present: normal exam - Neck Neck exam general surgery: Present: supple - Respiratory Respiratory exam: Present: rhonchi, wheezes - Cardiovascular Cardiovascular exam: Present: RRR. Absent: tachycardia - GI/Abdominal GI/Abdominal exam: Present: soft. Absent: tenderness - Extremities Exam Extremities exam: Present: warm. Absent: tenderness - Neurological Exam Neurological exam: Present: alert, oriented X3 - Skin Skin exam: Present: dry, warm - Patient Status Disposition: Home, Self-Care Condition: Good Functional capacity at discharge: independent ambulation Overall status at discharge: patient is progressing back to baseline - Discharge Instructions Follow Up With: José Luis Cervantes MD [Primary Care Provider] - - Diet and Activity Activity: increase activity as tolerated Diet: advance to your usual diet
[2018-07-30] MEDS: Ipratropium/Albuterol Neb 3 ML IH SCH ×4 (04:38→16:08)
[2018-07-30] MEDS: *HR* Heparin 5,000 UNIT/ML VIAL SQ SCH (06:03)
[2018-07-30] MEDS: Levothyroxine 25 MCG TABLET PO SCH (06:03)
[2018-07-30] MEDS: Aspirin Enteric Coated 81 MG Tablet PO SCH (08:10)
[2018-07-30] MEDS: Levofloxacin 750 MG/150 ML 750 MG/150 ML BAG IVPB SCH (08:10)
[2018-07-30 11:10] VITALS: BP 126/72
--- NOTE | 2018-07-30 11:17 | Internal Med Progress Note ---
Hospitalist Progress Note - Encounter Date of Encounter: 07/30/18 Time of Encounter: 11:15 - Subjective Interval History: No events overnight - Exam Vitals: Temp Pulse Resp BP Pulse Ox 97.7 F 101 22 126/72 93 07/30/18 11:08 07/30/18 11:08 07/30/18 11:08 07/30/18 11:08 07/30/18 11:08 Exam: General: NAD, good eye contact, well appearing, obese, faint audible wheezing Thoracic: Diminished aeration, does have faint expiratory wheezes Cardio: Normal S1 and S2, regular rate and rhythm Abdomen: Soft, nontender Extremities: Warm, well perfused. DP pulses 2+ b/l. Does have 2+ pitting edema to mid-collins b/l Skin: Intact. No rashes, bruises, or ulcers Neuro: Awake, fully oriented. Speech fluent - Assessment and Plan (1) Acute exacerbation of chronic obstructive airways disease Current Visit: Yes Status: Acute (2) Acute and chronic respiratory failure with hypercapnia Current Visit: Yes Status: Acute (3) Acute respiratory failure with hypoxia Current Visit: Yes Status: Acute (4) Hypothyroidism Current Visit: Yes Status: Chronic (5) Hypertension Current Visit: Yes Status: Chronic - Summary of Assessment and Plan Summary of Assessment and Plan: COPD exacerbation and acute (and now new dx chronic) hypoxic and hypercapneic resp failure req 2L O2 as well as bipap qhs. Pt improving today, plan for discharge when supplies arranged. Internal Medicine: Result - Labs CBC & Chem 7: 07/28/18 09:20 07/28/18 09:20 Consult Discharge Plan - Plan Referrals: José Luis Cervantes MD [Primary Care Provider] - Prescriptions: PredniSONE [Deltasone] 40 mg PO DAILY #10 tablet Ipratropium/Albuterol Neb [Duoneb] 3 ml IH [id number] #100 inhsol levoFLOXacin [Levaquin] 750 mg PO DAILY #5 tablet GuaiFENesin ER [Mucinex] 1,200 mg PO BID #60 tbbp.12hr (4) Hypothyroidism Qualifiers: Hypothyroidism type: acquired Qualified Code(s): E03.9 - Hypothyroidism, unspecified (5) Hypertension Qualifiers: Hypertension type: essential hypertension Qualified Code(s): I10 - Essential (primary) hypertension
== END 2018-07-30 16:21 | disposition home or self-care (01) | DRG 190 ==
LOC: 3NENU 18:02 → EMEROOARM 18:02 → SUATTDRO 07-25 03:55 → 3NENU 07-25 05:13 → SUATTDRO 07-28 19:50
PROVIDERS: ADMIT Internal Medicine; ATTEND Internal Medicine

== ENCOUNTER 2021-10-02 09:05 | Inpatient (IN) ==
[2021-10-02] MEDS ORDERED: Ipratropium/Albuterol Neb 3 ML IH ONE (09:25)
[2021-10-02] MEDS ORDERED: methylPREDNISolone 125 MG/2 ML VIAL IVP ONE (09:25)
[2021-10-02] MEDS ORDERED: Albuterol 2.5 MG/3 ML NEBULIZER IH ONE ×2 (09:26→10:55)
[2021-10-02 09:37] LABS: Basophils % 0.2 %; Hematocrit 46.4 % (35.3-44.9); Hemoglobin 14.8 g/dL (11.5-15.4); Immature Granulocytes % 0.3 % (0-4); Lymphocytes # 0.7 K/mcL (0.6-4.6); Lymphocytes % 5.6 %; Mean Corpuscular HGB Conc 31.9 g/dL (31.6-35.5); Mean Corpuscular Hemoglobin 26.7 pg (28.0-33.3); Mean Corpuscular Volume 83.8 fL (83.0-100.0); Mean Platelet Volume 11.2 fL (9.4-12.4); Monocytes # 0.8 K/mcL (0.0-1.3); Monocytes % 5.8 %; Neutrophils # 11.6 K/mcL (1.6-8.9); Platelet Count 147 K/mcL (140-400); Red Blood Count 5.54 M/mcL (3.82-4.97); Red Cell Distribution Width 15.8 % (11.5-14.5); Segmented Neutrophils % 88.1 %; White Blood Count 13.1 K/mcL (4.3-11.1)
[2021-10-02 10:00] LABS: VBG HCO3 28 mEq/L (21-27); VBG PCO2 49 mmHg (41-51); VBG PH 7.37 pH Units (7.32-7.42); VBG PO2 59 mmHg (25-50)
[2021-10-02 10:06] LABS: Calcium 8.8 mg/dL (8.6-10.3); Potassium 3.7 mEq/L (3.5-5.1); Troponin I 0.06 ng/mL (< 0.04)
[2021-10-02 10:45] LABS: Influenza A PCR Negative (Negative); Influenza B PCR Negative (Negative); Resp. Syncytial Virus PCR Negative (Negative)
[2021-10-02] MEDS ORDERED: cefTRIAXone 1,000 MG in Water for inj. (sterile) 10 ML IVP ONE (11:16)
[2021-10-02] MEDS ORDERED: Azithromycin 500 MG in 0.9 % Sodium Chloride 250 ML IVPB ONE (11:16)
[2021-10-02 11:27] LABS: SARS-CoV-2 by PCR (In House) Positive (Negative)
[2021-10-02] MEDS ORDERED: Melatonin 3 MG TABLET PO PRN (13:49)
[2021-10-02] MEDS ORDERED: Ondansetron 4 MG/2 ML VIAL IVP PRN (13:49)
[2021-10-02 15:03] LABS: Albumin 3.7 g/dL (3.5-5.7); Bilirubin,Direct 0.4 mg/dL (0.0-0.2); Bilirubin,Indirect 0.5 mg/dL (0.0-1.0); Bilirubin,Total 0.9 mg/dL (0.3-1.0); Globulin 3.6 g/dL (2.4-3.5); Total Protein 7.3 g/dL (6.4-8.9)
[2021-10-02 15:12] LABS: C-Reactive Protein > 300 mg/L (Less than 10); Ferritin 306 ng/mL (10-120); Lactate Dehydrogenase 246 Units/L (140-271)
[2021-10-02] MEDS: Levalbuterol Neb 1.25 MG/3 ML IH SCH (23:39)
[2021-10-03] MEDS: Acetaminophen 325 MG TABLET PO PRN ×2 (02:06→10:08)
[2021-10-03 02:22] LABS: Hematocrit 42.8 % (35.3-44.9); Hemoglobin 13.5 g/dL (11.5-15.4); Mean Corpuscular HGB Conc 31.5 g/dL (31.6-35.5); Mean Corpuscular Hemoglobin 26.7 pg (28.0-33.3); Mean Corpuscular Volume 84.6 fL (83.0-100.0); Mean Platelet Volume 11.8 fL (9.4-12.4); Platelet Count 164 K/mcL (140-400); Red Blood Count 5.06 M/mcL (3.82-4.97); Red Cell Distribution Width 15.7 % (11.5-14.5); White Blood Count 8.2 K/mcL (4.3-11.1)
[2021-10-03 02:39] LABS: Calcium 8.7 mg/dL (8.6-10.3); Magnesium 2.1 mg/dL (1.6-2.6); Phosphorous 2.7 mg/dL (2.7-4.5); Potassium 3.6 mEq/L (3.5-5.1)
[2021-10-03] MEDS: Levalbuterol Neb 1.25 MG/3 ML IH SCH (03:55)
[2021-10-03] MEDS ORDERED: *HR* Enoxaparin 40 MG/0.4 ML SYRINGE SQ SCH (06:00)
[2021-10-03] MEDS ORDERED: Furosemide 40 MG/4 ML VIAL IVP ONE (07:30)
[2021-10-03] MEDS ORDERED: Azithromycin 250 MG TABLET PO SCH (09:00)
[2021-10-03] MEDS ORDERED: Dexamethasone Sodium Phos/PF 10 MG/ML VIAL IVP SCH (09:00)
[2021-10-03] MEDS ORDERED: predniSONE 20 MG TABLET PO SCH (09:00)
[2021-10-03] MEDS: Aspirin Enteric Coated 81 MG Tablet PO SCH (09:52)
[2021-10-03] MEDS: cefTRIAXone 1,000 MG in Water for inj. (sterile) 10 ML IVP SCH (09:53)
[2021-10-03] MEDS: Azithromycin 500 MG in 0.9 % Sodium Chloride 250 ML IVPB SCH (09:54)
[2021-10-03] MEDS ORDERED: Ipratropium 1 PUFF INHALER IH SCH (10:00)
[2021-10-03] MEDS: Budesonide/Formoterol 160/4.5 1 PUFF INH IH SCH ×2 (10:52→23:00)
[2021-10-03] MEDS: Ipratropium/Albuterol Neb 3 ML IH SCH ×3 (10:52→22:59)
[2021-10-03] MEDS: *HR* Enoxaparin 40 MG/0.4 ML SYRINGE SQ SCH (17:02)
[2021-10-04 03:51] LABS: Basophils % 0.2 %; Hematocrit 41.5 % (35.3-44.9); Hemoglobin 13.1 g/dL (11.5-15.4); Immature Granulocytes % 0.5 % (0-4); Lymphocytes # 0.5 K/mcL (0.6-4.6); Lymphocytes % 4.1 %; Mean Corpuscular HGB Conc 31.6 g/dL (31.6-35.5); Mean Corpuscular Hemoglobin 26.7 pg (28.0-33.3); Mean Corpuscular Volume 84.7 fL (83.0-100.0); Mean Platelet Volume 11.4 fL (9.4-12.4); Monocytes # 0.5 K/mcL (0.0-1.3); Monocytes % 4.6 %; Platelet Count 200 K/mcL (140-400); Red Cell Distribution Width 15.9 % (11.5-14.5); Segmented Neutrophils % 90.6 %
[2021-10-04 04:13] LABS: Calcium 8.6 mg/dL (8.6-10.3); Magnesium 2.2 mg/dL (1.6-2.6); Potassium 3.9 mEq/L (3.5-5.1)
[2021-10-04] MEDS: Ipratropium/Albuterol Neb 3 ML IH SCH ×4 (04:17→23:00)
[2021-10-04 04:33] LABS: Thyroid Stimulating Hormone 0.491 mcIU/mL (0.340-5.600)
[2021-10-04] MEDS: Levothyroxine 25 MCG TABLET PO SCH (05:34)
[2021-10-04] MEDS: *HR* Enoxaparin 40 MG/0.4 ML SYRINGE SQ SCH ×2 (05:35→18:31)
[2021-10-04] MEDS: cefTRIAXone 1,000 MG in Water for inj. (sterile) 10 ML IVP SCH (09:47)
[2021-10-04] MEDS: Azithromycin 500 MG in 0.9 % Sodium Chloride 250 ML IVPB SCH (09:48)
[2021-10-04] MEDS: Aspirin Enteric Coated 81 MG Tablet PO SCH (09:48)
[2021-10-04] MEDS: Budesonide/Formoterol 160/4.5 1 PUFF INH IH SCH ×2 (10:27→23:00)
[2021-10-05] MEDS: Ipratropium/Albuterol Neb 3 ML IH SCH ×4 (04:03→22:22)
[2021-10-05] MEDS: Levothyroxine 25 MCG TABLET PO SCH (05:18)
[2021-10-05] MEDS: *HR* Enoxaparin 40 MG/0.4 ML SYRINGE SQ SCH ×2 (05:19→17:15)
[2021-10-05 05:26] LABS: Basophils % 0.5 %; Hematocrit 43.5 % (35.3-44.9); Hemoglobin 13.3 g/dL (11.5-15.4); Immature Granulocytes % 0.8 % (0-4); Lymphocytes # 0.7 K/mcL (0.6-4.6); Lymphocytes % 7.8 %; Mean Corpuscular HGB Conc 30.6 g/dL (31.6-35.5); Mean Corpuscular Hemoglobin 26.5 pg (28.0-33.3); Mean Corpuscular Volume 86.7 fL (83.0-100.0); Mean Platelet Volume 11.2 fL (9.4-12.4); Monocytes # 0.7 K/mcL (0.0-1.3); Monocytes % 8.4 %; Neutrophils # 7.1 K/mcL (1.6-8.9); Platelet Count 225 K/mcL (140-400); Red Blood Count 5.02 M/mcL (3.82-4.97); Red Cell Distribution Width 15.9 % (11.5-14.5); Segmented Neutrophils % 82.5 %; White Blood Count 8.6 K/mcL (4.3-11.1)
[2021-10-05 06:50] LABS: BUN/Creatinine Ratio 32 (6-26); Blood Urea Nitrogen 21 mg/dL (8-23); Calcium 8.5 mg/dL (8.6-10.3); Carbon Dioxide 30 mEq/L (23-29); Chloride 101 mEq/L (98-107); Glucose 116 mg/dL (70-105); Magnesium 1.9 mg/dL (1.6-2.6); Osmolality,Calculated 288 (280-300); Potassium 4.1 mEq/L (3.5-5.1); Sodium 137 mEq/L (136-145)
[2021-10-05] MEDS: Aspirin Enteric Coated 81 MG Tablet PO SCH (08:36)
[2021-10-05] MEDS: Azithromycin 250 MG TABLET PO SCH (09:39)
[2021-10-05] MEDS: Cefdinir 300 MG CAPSULE PO SCH ×2 (09:39→22:18)
[2021-10-05] MEDS: Benzonatate 100 MG CAPSULE PO PRN ×2 (10:27→22:18)
[2021-10-05] MEDS: Budesonide/Formoterol 160/4.5 1 PUFF INH IH SCH ×2 (11:03→22:22)
[2021-10-06] MEDS: Ipratropium/Albuterol Neb 3 ML IH SCH ×2 (04:06→11:11)
[2021-10-06] MEDS: Levothyroxine 25 MCG TABLET PO SCH (05:40)
[2021-10-06] MEDS: *HR* Enoxaparin 40 MG/0.4 ML SYRINGE SQ SCH (05:40)
[2021-10-06] MEDS: Cefdinir 300 MG CAPSULE PO SCH (08:11)
[2021-10-06] MEDS: Aspirin Enteric Coated 81 MG Tablet PO SCH (08:11)
[2021-10-06] MEDS: Azithromycin 250 MG TABLET PO SCH (08:12)
[2021-10-06 11:05] VITALS: BP 115/73; PULSE 74; TEMP 97.5
[2021-10-06] MEDS: Budesonide/Formoterol 160/4.5 1 PUFF INH IH SCH (11:11)
[2021-10-06 12:22] VITALS: O2SAT 98
== END 2021-10-06 12:35 | disposition home or self-care (01) | DRG 871 ==
LOC: 2ANU 09:05 → EMEROOARM 09:05 → 2ANU 13:26 → SUATTDRO 13:49
PROVIDERS: ADMIT Internal Medicine; ATTEND Internal Medicine